=== PATIENT | male | born 1990 | race Caucasian/White ===

== ENCOUNTER 2019-04-01 19:20 | Emergency (ER) | payer OTHER ==
[~2019-04-01] VITALS: Ht 193 cm; Wt 111.1 kg
--- NOTE | 2019-04-01 19:25 | NUR ---
PT CAME INTO THE ED C/O HEADACHE X 2 WEEKS. -NV. DENIES ANY TRAUMA. PT AAOX4, VSS, BREATHINGE DANILO AND UNLABORED ON RA W/ NAD NOTED. PT CONNECTED TO THE MONITOR AND POX.
[2019-04-01] MEDS: BUTALB/APAP/CAFFEINE 1 EACH TABLET PO ONE (20:35)
[2019-04-01 21:36] VITALS: BP 126/84
--- NOTE | 2019-04-01 21:36 | NUR ---
Patient discharged to home in stable condition. Written and verbal after care instructions given. Patient verbalizes understanding of instruction.
== END 2019-04-01 21:37 | disposition home or self-care (01) ==
LOC: ER 19:20
DX: G44.209 Tension-type headache, unspecified, not intractable (principal); R22.42 Localized swelling, mass and lump, left lower limb; Z86.718 Personal history of other venous thrombosis and embolism; Z86.711 Personal history of pulmonary embolism
CPT/HCPCS: 93971-TC